=== PATIENT | female | born 1935 | race Caucasian/White ===

== ENCOUNTER 2017-06-04 05:02 | Outpatient (CLI) | payer MEDICARE, MEDICAID ==
[~2017-06-04 05:02] MED LIST: ALBU18HF2 IH; ASPI-1265 PO; ATE25T PO; CALC-89 PO; CHOL100010 PO; CLA10T PO; CRAN450T9 PO; GLUC1TAB21 PO; LEVO88TA28 PO; LISI-600 PO; POTA2TAB6 PO
== END 2017-06-04 23:59 | disposition home or self-care (01) ==
LOC: DIABETIC 05:02
PROVIDERS: ATTEND Family Medicine
DX: E11.65 Type 2 diabetes mellitus with hyperglycemia (principal); E11.40 Type 2 diabetes mellitus with diabetic neuropathy, unspecified; E78.5 Hyperlipidemia, unspecified; I10 Essential (primary) hypertension; I67.9 Cerebrovascular disease, unspecified
CPT/HCPCS: G0108

== ENCOUNTER 2017-09-26 12:52 | Outpatient (CLI) | payer MEDICARE, MEDICAID | END 2017-09-26 23:59 | disposition home or self-care (01) | LOC: VAS 12:52 | PROVIDERS: ATTEND Family Medicine | DX: I82.811 Embolism and thrombosis of superficial veins of right lower extremity (principal); I10 Essential (primary) hypertension; Z79.82 Long term (current) use of aspirin; Z87.891 Personal history of nicotine dependence | CPT/HCPCS: 93971 ==

== ENCOUNTER 2017-10-02 02:31 | Outpatient (CLI) | payer MEDICARE, MEDICAID | END 2017-10-02 23:59 | disposition home or self-care (01) | LOC: DIABETIC 02:31 | DX: E11.65 Type 2 diabetes mellitus with hyperglycemia (principal); E11.40 Type 2 diabetes mellitus with diabetic neuropathy, unspecified; I10 Essential (primary) hypertension; E78.5 Hyperlipidemia, unspecified; I67.9 Cerebrovascular disease, unspecified; Z88.2 Allergy status to sulfonamides; Z79.82 Long term (current) use of aspirin; Z88.1 Allergy status to other antibiotic agents; Z88.8 Allergy status to other drugs, medicaments and biological substances; Z90.710 Acquired absence of both cervix and uterus | CPT/HCPCS: G0108 ==

== ENCOUNTER 2017-12-13 12:19 | Outpatient (CLI) | payer MEDICARE, MEDICAID | END 2017-12-13 23:59 | disposition home or self-care (01) | LOC: LAB 12:19 → RAD 23:59 | PROVIDERS: ATTEND Family Medicine | DX: M17.12 Unilateral primary osteoarthritis, left knee (principal); M79.604 Pain in right leg; M54.31 Sciatica, right side; M51.36 Other intervertebral disc degeneration, lumbar region; M43.16 Spondylolisthesis, lumbar region; M85.88 Other specified disorders of bone density and structure, other site; M16.0 Bilateral primary osteoarthritis of hip; M47.898 Other spondylosis, sacral and sacrococcygeal region; M47.816 Spondylosis without myelopathy or radiculopathy, lumbar region; I10 Essential (primary) hypertension; Z96.652 Presence of left artificial knee joint; Z90.710 Acquired absence of both cervix and uterus; Z79.82 Long term (current) use of aspirin | CPT/HCPCS: 72110; 72202; 73521; 73565 ==

== ENCOUNTER 2018-01-02 02:01 | Outpatient (CLI) | payer MEDICARE, MEDICAID | END 2018-01-02 23:59 | disposition home or self-care (01) | LOC: DIABETIC 02:01 | PROVIDERS: ATTEND Family Medicine | DX: E11.65 Type 2 diabetes mellitus with hyperglycemia (principal); E11.40 Type 2 diabetes mellitus with diabetic neuropathy, unspecified; I67.9 Cerebrovascular disease, unspecified; I10 Essential (primary) hypertension; E78.5 Hyperlipidemia, unspecified; Z79.82 Long term (current) use of aspirin; Z88.2 Allergy status to sulfonamides | CPT/HCPCS: G0108 ==

== ENCOUNTER 2018-05-15 01:38 | Outpatient (CLI) | payer MEDICARE, MEDICAID | END 2018-05-15 23:59 | disposition home or self-care (01) | LOC: DIABETIC 01:38 | PROVIDERS: ATTEND Family Medicine | DX: E11.65 Type 2 diabetes mellitus with hyperglycemia (principal); E11.40 Type 2 diabetes mellitus with diabetic neuropathy, unspecified; I67.9 Cerebrovascular disease, unspecified; I10 Essential (primary) hypertension; E78.5 Hyperlipidemia, unspecified; Z79.82 Long term (current) use of aspirin; Z88.2 Allergy status to sulfonamides; Z90.710 Acquired absence of both cervix and uterus | CPT/HCPCS: G0108 ==